=== PATIENT | female | born 1930 | race Caucasian/White ===

== ENCOUNTER 2016-11-17 00:16 | Inpatient (IN) | payer OTHER ==
[~2016-11-17] VITALS: Ht 149.9 cm; Wt 58.2 kg
--- NOTE | 2016-11-17 00:33 | EMERGENCY ROOM VISIT NOTE ---
History Report prepared by Shannan: César Wheat Under the Supervision of: Dr. Marvin Damian M.D. First contact with patient: 00:20 Chief Complaint: ABDOMINAL PAIN Stated Complaint: ABDOMINAL PAIN History of Present Illness The patient is an 86 year old female who presents to the Emergency Room with complaints of improving abdominal pain that started around 1899. The patient states that she thinks that she ate supper too quickly. She states that she was spitting up afterwards, and this made her feel better. The patient additionally states that she is having some back pain, though she denies any chest pain or shortness of breath. She states that she had two bowel movements since the pain started. The patient states that she has a history of 8 previous heart attacks, though this feels different. She states that she has not had a cholecystectomy. Source of History: patient Onset: 1899 Position: abdomen Timing: other (improving) Modifying Factors (Relieving): other (spitting up) Associated Symptoms: + back pain, No chest pain, No SOB Note: Associated symptoms: spitting up Review of Systems See HPI for pertinent positives & negatives. A total of 10 systems reviewed and were otherwise negative. Past Medical & Surgical Medical Problems: (1) Acute calculous cholecystitis (2) Anemia (3) CAD (coronary artery disease) of artery bypass graft (4) Coronary artery disease (5) Diabetes (6) GERD (gastroesophageal reflux disease) (7) Hyperlipidemia (8) Hypertension (9) Mitral valve disorder (10) Osteoarthritis (11) TIA (transient ischemic attack) (12) Vitamin D deficiency Social History Smoking Status: Former Smoker Alcohol Use: none Marital Status: Occupation Status: retired Current/Historical Medications Scheduled Amlodipine (Norvasc), 5 MG PO HS Ascorbic Acid (Vitamin C), 250 MG PO DAILY Aspirin (Aspirin 81), 81 MG PO DAILY Calcium/Vitamin D (Os-Shankar 500 Plus D), 1 TAB PO BID Carvedilol (Coreg), 6.25 MG PO BID Cholecalciferol (Vitamin D), 2,000 UNIT PO DAILY Clopidogrel (Plavix), 75 MG PO QAM Coenzyme Q10 (Ubidecarenone) (Coq-10), 100 MG PO DAILY Cyanocobalamin (Vitamin B12), 1,000 MCG PO DAILY Lisinopril (Prinivil), 40 MG PO QAM Methylsulfonylmethane (Msm), 1,000 MG PO DAILY Nitroglycerin (Nitrostat), 0.4 MG UT UD Ranitidine (Zantac), 150 MG PO HS Rosuvastatin Calcium (Crestor), 5 MG PO HS Scheduled PRN Ipratropium-Albuterol (Combivent Respimat), 1 PUFFS INH QID PRN for COUGH, WHEEZING Allergies Coded Allergies: Atenolol (Verified Allergy, Unknown, UNKNOWN, 11/17/16) Doxycycline (Verified Allergy, Unknown, UNKNOWN, 11/17/16) Fluticasone (Verified Allergy, Unknown, UNKNOWN, 11/17/16) Methylprednisolone (Verified Allergy, Unknown, UNKNOWN, 11/17/16) Metoprolol (Verified Allergy, Unknown, UNKNOWN, 11/17/16) Milk Protein Extract (Verified Allergy, Unknown, UNKNOWN, 11/17/16) NSAIDs (Verified Allergy, Unknown, UNKNOWN, 11/17/16) Nadolol (Verified Allergy, Unknown, UNKNOWN, 11/17/16) Neomycin (Verified Allergy, Unknown, UNKNOWN, 11/17/16) Rosiglitazone (Verified Allergy, Unknown, UNKNOWN, 11/17/16) Salmeterol (Verified Allergy, Unknown, UNKNOWN, 11/17/16) Statins (Verified Allergy, Unknown, UNKNOWN, 11/17/16) Uncoded Allergies: BALSAM OF ADALID (Allergy, Unknown, UNKNOWN, 11/17/16) BETA ADRENERGIC BLOCKERS (Allergy, Unknown, UNKNOWN, 11/17/16) CHOLESTEROL LOWERING DRUGS (Allergy, Unknown, UNKNOWN, 11/17/16) ISMO (Allergy, Unknown, UNKNOWN, 11/17/16) MUSCLE RELAXANTS (Allergy, Unknown, UNKNOWN, 11/17/16) Physical Exam Vital Signs Date Time Temp Pulse Resp B/P (MAP) Pulse Ox O2 Delivery O2 Flow Rate FiO2 11/17/16 04:05 60 24 120/75 94 11/17/16 03:35 60 24 120/75 94 Room Air 11/17/16 01:39 74 20 97/38 93 Room Air 11/17/16 00:26 64 11/17/16 00:24 36.6 62 17 124/49 94 Room Air Physical Exam GENERAL: Patient is elderly appearing in no distress. Smiling and laughing during exam. HEENT: No acute trauma, normocephalic atraumatic, mucous membranes moist, no nasal congestion, no scleral icterus. NECK: No stridor, no adenopathy, no meningismus, trachea is midline. LUNGS: No dyspnea. Clear to auscultation and equal bilaterally. No wheeze, no rhonchi. HEART: Regular rate and rhythm. No murmurs, rubs, gallops appreciated. ABDOMEN: Small non-tender ventral hernia just above the umbilicus. Some vague epigastric tenderness to palpation. Soft, bowel sounds positive, no peritonitis. BACK: No midline tenderness, no CVA tenderness EXTREMITIES: Normal motion all extremities, no cyanosis, no edema. NEUROLOGIC: Alert and oriented, no acute motor or sensory deficits, no focal weakness, cranial nerves grossly intact. SKIN: No rash, no jaundice, no diaphoresis. Medical Decision & Procedures ER Provider Diagnostic Interpretation: X ray results are stated below per my interpretation and the radiologist's interpretation. One View Chest: No infiltrate, no effusion, mild perihilar scarring, and sternal wires intact Radiology results and stated below per my review and radiologist interpretation: CT ABDOMEN & PELVIS: Cholelithiasis with a large rime calcified stone in the gallbladder neck. Marked gallbladder distention with possible mild gallbladder wall thickening. No significant biliary duct dilation. Acute cholecystitis cannot be excluded. Further evaluation could be performed with HIDA scan or ultrasound if clinically indicated. Nondilated fluid-filled small bowel loops in the lower abdomen and pelvis are nonspecific. Enteritis or component of ileus cannot be excluded. No bowel obstruction or inflammation. Tiny hypodensity in the left kidney is too small to definitively characterize. No hydronephrosis or stone. Small hiatal hernia. Diverticulosis without evidence of diverticulitis. Normal appendix. Injection granulomas in the gluteal soft tissues. Extensive vascular atherosclerotic changes without aneurysm or dissection. Apparent common origin of the celiac artery and SMA. Prominent generalized osteopenia and degenerative changes of the spine. Patient is likely status post hysterectomy. Mild cardiomegaly. Coronary artery calcifications. Laboratory Results 11/17/16 00:35 Red Blood Count 4.51, Mean Corpuscular Volume 83.8, Mean Corpuscular Hemoglobin 28.2, Mean Corpuscular Hemoglobin Concent 33.6, Mean Platelet Volume 9.7, Neutrophils (%) (Auto) 82.0, Lymphocytes (%) (Auto) 12.7, Monocytes (%) (Auto) 3.8, Eosinophils (%) (Auto) 1.0, Basophils (%) (Auto) 0.2, Neutrophils # (Auto) 8.74, Lymphocytes # (Auto) 1.35, Monocytes # (Auto) 0.40, Eosinophils # (Auto) 0.11, Basophils # (Auto) 0.02 11/17/16 00:35 Test 11/17/16 00:35 11/17/16 00:42 White Blood Count 10.65 K/uL (4.8-10.8) Red Blood Count 4.51 M/uL (4.2-5.4) Hemoglobin 12.7 g/dL (12.0-16.0) Hematocrit 37.8 % (37-47) Mean Corpuscular Volume 83.8 fL (80-100) Mean Corpuscular Hemoglobin 28.2 pg (25-34) Mean Corpuscular Hemoglobin Concent 33.6 g/dl (32-36) Platelet Count 197 K/uL (130-400) Mean Platelet Volume 9.7 fL (7.4-10.4) Neutrophils (%) (Auto) 82.0 % Lymphocytes (%) (Auto) 12.7 % Monocytes (%) (Auto) 3.8 % Eosinophils (%) (Auto) 1.0 % Basophils (%) (Auto) 0.2 % Neutrophils # (Auto) 8.74 K/uL (1.4-6.5) Lymphocytes # (Auto) 1.35 K/uL (1.2-3.4) Monocytes # (Auto) 0.40 K/uL (0.11-0.59) Eosinophils # (Auto) 0.11 K/uL (0-0.5) Basophils # (Auto) 0.02 K/uL (0-0.2) RDW Standard Deviation 46.0 fL (36.4-46.3) RDW Coefficient of Variation 14.9 % (11.5-14.5) Immature Granulocyte % (Auto) 0.3 % Immature Granulocyte # (Auto) 0.03 K/uL (0.00-0.02) Estimated GFR () 95.0 Estimated GFR (Non- 81.9 BUN/Creatinine Ratio 21.0 (10-20) Calcium Level 9.0 mg/dl (8.5-10.1) Total Bilirubin 0.8 mg/dl (0.2-1) Direct Bilirubin 0.2 mg/dl (0-0.2) Aspartate Amino Transf (AST/SGOT) 17 U/L (15-37) Alanine Aminotransferase (ALT/SGPT) 20 U/L (12-78) Alkaline Phosphatase 68 U/L (45-117) Troponin I < 0.015 ng/ml (0-0.045) Total Protein 7.7 gm/dl (6.4-8.2) Albumin 3.5 gm/dl (3.4-5.0) Lipase 218 U/L (73-393) Bedside Hemoglobin 13.6 g/dl (12.0-16.0) Bedside Hematocrit 40 % (37-47) Bedside Sodium 136 mEq/L (135-144) Bedside Potassium 4.0 mEq/L (3.3-5.0) Bedside Chloride 94 mEq/L (101-112) Bedside Total CO2 30 mEq/l (24-31) Anion Gap 17.0 mmol/L (16-25) Bedside Blood Urea Nitrogen 14 mg/dl (7-18) Bedside Creatinine 0.7 mg/dl (0.6-1.3) Bedside Glucose (other) 190 mg/dl (70-99) Bedside Ionized Calcium (Cyndi) 1.19 mmol/l (1.12-1.32) Laboratory results as reviewed by me. Medications Administered Medications (Trade) Dose Ordered Sig/Catherine Route Start Time Stop Time Status Last Admin Dose Admin Ondansetron HCl (Zofran Inj) 4 mg NOW STAT IV 11/17/16 02:02 11/17/16 02:03 DC 11/17/16 02:32 4 MG Fentanyl Citrate (Fentanyl Inj) 25 mcg NOW ONCE IV 11/17/16 02:15 11/17/16 02:16 DC 11/17/16 02:32 25 MCG Sodium Chloride 1,000 ml @ 75 mls/hr [id number] STAT IV 11/17/16 02:02 11/17/16 15:21 11/17/16 02:31 75 MLS/HR Cefoxitin Sodium 2000 mg/Dextrose 60 ml @ 120 mls/hr NOW STAT IV 11/17/16 02:19 11/17/16 02:48 DC 11/17/16 02:31 120 MLS/HR ECG Indication: abdominal pain Rate (beats per minute): 69 Rhythm: sinus rhythm Findings: 1st degree AV block, PAC, no acute ischemic change ED Course 0020: The patient was evaluated in room A11. A complete history and physical exam was performed. 0200: I reassessed the patient, and I went over the treatment plan, and she agrees. She was having increasing right upper quadrant pain and nausea. 0202: Sodium Chloride 1000 ml @ 75 mls/hr IV, Zofran Inj 4mg IV, Mefoxin 2000mg IV 0203: Discussed the patient's case with Keyana Ramirez. The patient will be evaluated for further treatment and disposition. 0205: I discussed the patient's case with Dr. Alvarez, Surgery, and he states that the surgical team will evaluate the patient tomorrow morning. He agrees with the antibiotics. 0215: Fentanyl Inj 25mcg IV 0219: Cefoxitin Sodium 2000mg/ Dextrose 60 ml @ 120mls/hr IV Medical Decision Differential: Cholecystitis, Gallbladder disfunction, Hepatic Disfunction, Gastritis/PUD, Pancreatitis, ACS, Aortic Pathology, amongst other pathologies entertained. 86 yr old female with significant CAD history and CABG arrives following episode of epigastric pain and vomiting which has improved on arrival. Anxious with mild epigastric TTP. Labs unremarkable but given age and history went ahead with CT. While awaiting results patient developed pain, nausea thus fent/ zofran. CT shows large GB with stones and mild wall thickening. Given exam this is consistent with cholecystitis. Reviewed with gen surg who will evaluate in am and medicine to admit. Given empiric abx. Stable and no peritonitis. Medication Reconcilliation Current Medication List: was personally reviewed by ri Blood Pressure Screening Patient's blood pressure: Normal blood pressure Consults Time Called: 020 Consulting Physician: Keyana Ramirez Returned Call: 020 Discussed the patient's case with Keyana Ramirez. The patient will be evaluated for further treatment and disposition. Additional Consults: Time Called: 020 Consulted Physician: Dr. Alvarez, Surgery Returned Call: 020 Additional Comments: I discussed the patient's case with Dr. Alvarez, Surgery, and he states that the surgical team will evaluate the patient tomorrow morning. He agrees with the antibiotics. Impression Primary Impression: Cholecystitis Scribe Attestation The scribe's documentation has been prepared under my direction and personally reviewed by me in its entirety. I confirm that the note above accurately reflects all work, treatment, procedures, and medical decision making performed by me. Departure Information Dispostion Being Evaluated By Hospitalist Referrals Sasha Smith M.D. (PCP) Patient Instructions My [facility]
[2016-11-17] MEDS ORDERED: OPTIRAY 320 IV PRN (00:45)
[2016-11-17 00:51] LABS: BASO % 0.2 %; BASO ABS # 0.02 K/uL (0-0.2); COMPLETE YES; HEMATOCRIT 37.8 % (37-47); IG% 0.3 %; LYMPH % 12.7 %; LYMPH ABS # 1.35 K/uL (1.2-3.4); MEAN CELL VOLUME 83.8 fL (80-100); MEAN CORPUSCULAR HEMOGLOBIN 28.2 pg (25-34); MEAN CORPUSCULAR HGB CONC 33.6 g/dl (32-36); MEAN PLATELET VOLUME 9.7 fL (7.4-10.4); MONO % 3.8 %; PLATELET COUNT 197 K/uL (130-400); RED BLOOD COUNT 4.51 M/uL (4.2-5.4); WHITE BLOOD COUNT 10.65 K/uL (4.8-10.8)
[2016-11-17 00:54] LABS: ISTAT CREATININE 0.7 mg/dl (0.6-1.3); ISTAT HEMOGLOBIN 13.6 g/dl (12.0-16.0); ISTAT IONIZED CALCIUM 1.19 mmol/l (1.12-1.32)
[2016-11-17 01:13] LABS: ALT/SGPT 20 U/L (12-78); AST/SGOT 17 U/L (15-37); BLOOD UREA NITROGEN 13 mg/dl (7-18); CARBON DIOXIDE 32 mmol/L (21-32); CHLORIDE 98 mmol/L (98-107); CREATININE 0.64 mg/dl (0.60-1.20); GLUCOSE 185 mg/dl (70-99); SODIUM 138 mmol/L (136-145)
[2016-11-17 01:18] LABS: ALKALINE PHOSPHATASE 68 U/L (45-117)
[2016-11-17] MEDS ORDERED: SODIUM CHLORIDE 0.9% 1000ML 1,000 ML IV STA (02:02)
[2016-11-17] MEDS ORDERED: ONDANSETRON INJ 2 MG/ML 2 ML VIAL IV STA (02:02)
[2016-11-17] MEDS ORDERED: CEFOXITIN SOD 2 GM VIAL IV STA (02:02)
[2016-11-17] MEDS ORDERED: FENTANYL CITRATE INJ 50 MCG/1 ML 2 ML VIAL IV ONE (02:15)
[2016-11-17] MEDS ORDERED: CEFOXITIN IV 2,000 MG in DEXTROSE 5% 50ML 50 ML IV STA (02:19)
[2016-11-17] MEDS ORDERED: CHOL200010 PO (02:29)
[2016-11-17] MEDS ORDERED: ASPI-435 PO (02:29)
[2016-11-17] MEDS ORDERED: NTRGSL/4 UT (02:29)
[2016-11-17] MEDS ORDERED: CARV6.252 PO (02:29)
[2016-11-17] MEDS ORDERED: CALC500C70 PO (02:30)
[2016-11-17] MEDS ORDERED: COEN100C11 PO (02:30)
[2016-11-17] MEDS ORDERED: IPRA1AER2 INH (02:30)
[2016-11-17] MEDS ORDERED: METH1CAP PO (02:33)
[2016-11-17] MEDS ORDERED: ZNTT/150 PO (02:33)
[2016-11-17] MEDS ORDERED: ROSU5TAB PO (02:33)
[2016-11-17] MEDS ORDERED: LISI40TA PO (02:33)
[2016-11-17] MEDS ORDERED: CYAN100020 PO (02:33)
[2016-11-17] MEDS ORDERED: CLOP1TAB15 PO (02:33)
[2016-11-17] MEDS ORDERED: AMLO-110 PO (02:33)
[2016-11-17] MEDS ORDERED: ASCO250T4 PO (02:33)
[2016-11-17] MEDS ORDERED: IPRATROPIUM BROMIDE/ALBUTEROL respimat INH INH PRN (03:15)
[2016-11-17] MEDS ORDERED: ACETAMINOPHEN 325 MG TAB PO PRN (03:15)
[2016-11-17] MEDS ORDERED: ONDANSETRON INJ 2 MG/ML 2 ML VIAL IV PRN (03:15)
[2016-11-17] MEDS ORDERED: NITROGLYCERIN 0.4 MG SL PER TAB CHARGE UT SCH (03:15)
[2016-11-17] MEDS ORDERED: GLUCOSE 40% GEL 15 GM TUBE PO PRN (03:45)
[2016-11-17] MEDS ORDERED: GLUCAGON FOR INJ 1 MG VIAL SQ PRN (03:45)
[2016-11-17] MEDS ORDERED: DEXTROSE 50% 50 ML SYR IV PRN (03:45)
[2016-11-17] MEDS ORDERED: GLUCOSE 10 TABS/TUBE PO PRN (03:45)
[2016-11-17 04:29] VITALS: BP 132/53; PULSE 75; TEMP 36.5; O2SAT 94; Ht 149.9 cm; Wt 58.2 kg
[2016-11-17] MEDS ORDERED: PATIENT'S HEIGHT AND/OR WEIGHT NEEDED SCH (05:00)
[2016-11-17] MEDS: SODIUM CHLORIDE 0.9% 1000ML 1,000 ML IV SCH ×2 (05:20→19:24)
--- NOTE | 2016-11-17 05:56 | HISTORY & PHYSICAL EXAMINATION ---
DATE OF ADMISSION: 11/17/2016 PRIMARY CARE PHYSICIAN: Dr. Smith. CHIEF COMPLAINT: Acute epigastric pain since around 6:45 last evening. 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 Apparently, after supper with a sandwich, she complained to have epigastric pain like a band across the upper abdomen. The pain was so severe that she came to the Emergency Room. She did not have any nausea, vomiting, any fever or chills associated with it. In the ER, she was afebrile, but the CAT scan of the abdomen and pelvis did show a huge stone in the neck of the gallbladder with hugely dilated gallbladder wall, suggestive of acute cholecystitis. Surgery was consulted and the patient was put on intravenous antibiotic for possible surgery in the morning. Denies to have any chest pain, palpitation, any shortness of breath, no fever, chills or rigors. No cough or phlegm. No problem with urine and/or bowel habit. No numbness or tingling in the extremities. PAST MEDICAL HISTORY: Significant for CAD with multiple MIs in the past and status post CABG x3, chronic anemia, diabetes, diet controlled, GERD, hyperlipidemia, hypertension and history of mitral valve disorder. PAST SURGICAL HISTORY: CABG x3. FAMILY HISTORY: Nothing contributory. SOCIAL HISTORY: She is . She used to smoke in the past, but quit many, many years ago. She does not use any alcohol and she has been reasonably ambulant, but she does not go up stairs and she does not cross any steps to go up or down. ALLERGIES: SHE IS ALLERGIC TO ATENOLOL, DOXYCYCLINE, FLUTICASONE, METHYLPREDNISONE, METOPROLOL, MILK PROTEIN, NSAIDs, NADOLOL, NEOMYCIN, ROSIGLITAZONE, SOLU-MEDROL, STATINS, BETA-ADRENERGIC BLOCKERS, CHOLESTEROL-LOWERING DRUGS, ISMO AND MUSCLE RELAXANTS. MEDICATIONS: As an outpatient, she has been on aspirin 81 mg daily, Plavix 75 mg daily, ascorbic acid 250 mg daily, cholecalciferol 2000 units daily, Coenzyme Q10 100 mg daily, cyanocobalamin 1000 mcg daily and methylsulfonylmethane 1000 mg daily, amlodipine 5 mg daily, Coreg 6.25 mg b.i.d., albuterol 1 puff q.i.d. p.r.n., lisinopril 40 mg daily, Nitrostat 0.4 mg as directed, ranitidine 150 mg at bedtime and Ambien 5 mg at bedtime. REVIEW OF SYSTEMS: Other system review was unremarkable, except those mentioned in the history of present complaint. PHYSICAL EXAMINATION: GENERAL: On examination in the Emergency Room, she was not having any acute distress. Minimal pain in the epigastrium. VITAL SIGNS: Temperature 36.6, pulse was 74, blood pressure 97/38, but initially, it was 124/49, saturation 93% on room air. HEENT: Unremarkable. NECK: Supple. No JVD, no bruit. CHEST: Clear to auscultation bilaterally. HEART: S1, S2 regular, no murmur. ABDOMEN: Soft. Tender in the epigastrium and also in the right upper quadrant, persistent and positive. Bowel sounds present. EXTREMITIES: Trace edema bilaterally. MUSCULOSKELETAL SYSTEM: Examination did not show any acute arthritis. CENTRAL NERVOUS SYSTEM: She was alert, awake, oriented x3. No focal sensory and/or motor deficit appreciated. LABORATORY DATA: Noted today, white count was 10.65, H&H 12.7/37.8, platelet was 197. Chemistry: Sodium 136, potassium 4.0, chloride was 94, BUN 13, creatinine 0.64. Random glucose 190. LFTs unremarkable. Troponin less than 0.05. Lipase was 218. CT of the abdomen and pelvis without contrast showed cholelithiasis with a large rimmed calcified stone in the gallbladder neck, marked gallbladder distention with possible mild gallbladder wall thickening. No significant biliary dilatation; acute cholecystitis cannot be excluded, a small hiatal hernia, diverticulosis without diverticulitis and extensive vascular atherosclerotic changes without aneurysm or dissection, apparent common origin of the celiac artery and SMA, mild cardiomegaly and coronary artery calcifications. EKG was in sinus rhythm with a first degree AV block, rate of 67 per minute, left axis deviation and no significant ST-T wave changes. IMPRESSION AND PLAN: 1. Acute cholecystitis with a hugely dilated gallbladder. Does not have any fever and/or increasing liver function tests. Surgery was consulted and she was started with intravenous cefotaxime and a small amount of IV fluid will be administered as well. She will have an echocardiogram to find out the cardiac function before she goes for surgery. She does not have any acute cardiac symptoms. 2. 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 She has not seen a mud grinder for a long time. She has been on aspirin, Plavix and cardiac medications. We will hold aspirin, Plavix and continue with Coreg. We will get an echocardiogram to find out the cardiac function before she goes for surgery. 3. Hypertension. Blood pressure seems to be lower side of normal. Continue current medications with hold parameters. 4. Hyperlipidemia. Continue with statin. 5. Gastrointestinal prophylaxis with ranitidine. 6. Deep venous thrombosis prophylaxis, subQ heparin. CODE STATUS. That was discussed with the patient, she will be a full code. In my clinical assessment, the beneficiary meets criteria as per CMS for 2 midnight stay in the hospital. SIMONE
[2016-11-17 06:23] LABS: PROTHROMBIN TIME (PATIENT) 11.2 SECONDS (9.0-12.0)
[2016-11-17] MEDS ORDERED: INSULIN ASPART 100 UNITS/ML 3 ML PEN SC SCH ×3 (07:00→12:00)
[2016-11-17 07:01] VITALS: BP 124/75; PULSE 73; TEMP 36.9; O2SAT 93
--- NOTE | 2016-11-17 07:08 | DIAGNOSTIC IMAGING REPORT ---
SINGLE VIEW CHEST CLINICAL HISTORY: Epigastric abdominal pain. Vomiting. FINDINGS: An AP, portable, upright chest radiograph is obtained. No prior studies are available for comparison at the time of dictation. The examination is degraded by portable technique and patient rotation. The patient is status post midline sternotomy. The heart is enlarged and there is atherosclerotic calcification of the thoracic aorta. The pulmonary vasculature is noncongested. Chronic appearing interstitial thickening is noted. There is no airspace consolidation or pleural effusion. No pneumothorax is seen. The skeletal structures are osteopenic. The bony thorax is grossly intact. IMPRESSION: Cardiomegaly with no acute cardiopulmonary abnormality. Electronically signed by: Jean Marie Hernández M.D. 11/17/2016 7:06 AM Dictated Date/Time: 11/17/2016 7:05 AM
[2016-11-17] MEDS ORDERED: NURSING VERBAL MED ORDER ONE ×2 (07:15→14:15)
--- NOTE | 2016-11-17 07:22 | DIAGNOSTIC IMAGING REPORT ---
CT SCAN OF THE ABDOMEN AND PELVIS WITH IV CONTRAST CLINICAL HISTORY: Epigastric abdominal pain. Vomiting. COMPARISON STUDY: No priors. TECHNIQUE: Following the IV administration of 115 cc of Optiray 320, CT scan of the abdomen and pelvis is performed from the lung bases to the proximal femora. Images are reviewed in the axial, sagittal, and coronal planes. IV contrast was administered without complication. Automated dose control exposure was utilized. A dose lowering technique was utilized adhering to the principles of ALARA. The examination is modestly degraded by motion artifact. CT DOSE: 271.37 mGy.cm FINDINGS: Lung bases: The patient is status post midline sternotomy. The heart is enlarged and without pericardial effusion. The coronary arteries are densely calcified. The lung bases are clear. There is a small hiatal hernia. Liver: The contrast-enhanced liver is normal in size, contour, and attenuation. There is no intrahepatic biliary ductal dilatation. The hepatic veins and portal veins are patent. Gallbladder: The gallbladder is distended. No significant gallbladder wall thickening is identified. There is minimal pericholecystic stranding. A large gallstone is seen in the region of the gallbladder neck on axial image #127 and measures at least 2.2 cm. Spleen: Normal in size and attenuation. Pancreas: Moderately atrophic and grossly unremarkable. Adrenal glands: Unremarkable. Kidneys: The contrast enhanced kidneys are atrophic and without hydronephrosis. The kidneys enhance symmetrically. Abdominal vasculature: The abdominal aorta is normal in course and caliber noting advanced atherosclerotic calcification. Bowel: The small bowel and colon are normal in course and caliber. A duodenal diverticulum is incidentally noted. There is moderate diverticulosis of left colon without CT evidence of acute diverticulitis. The appendix is well-visualized and normal. Peritoneum: There is no intraperitoneal free air or abdominal ascites. Lymphadenopathy: None. Pelvic viscera: The bladder is normal as visualized. The uterus is surgically absent. No adnexal lesion is seen. There are calcified gluteal granulomas. There is a small fat-containing right inguinal hernia. Skeletal structures: The skeletal structures are osteopenic. Moderate to advanced lumbosacral spondylosis is observed. Sclerotic degenerative change is seen in the sacroiliac joints and pubic symphysis. No lytic or blastic lesions are seen. IMPRESSION: 1. The gallbladder is distended and faint pericholecystic stranding is suggested. A large gallstone is seen in the region of the gallbladder neck and the findings are concerning for acute cholecystitis. Correlation with clinical findings will be required. If clinically warranted ultrasound could be considered for further assessment. 2. Cardiomegaly. 3. There is moderate diverticulosis of the left colon without CT evidence of acute diverticulitis. 4. Additional findings as above. Electronically signed by: Jean Marie Hernández M.D. 11/17/2016 7:20 AM Dictated Date/Time: 11/17/2016 7:14 AM
[2016-11-17] MEDS: CEFOXITIN IV 2,000 MG in DEXTROSE 5% 50ML 50 ML IV SCH ×3 (08:07→20:02)
[2016-11-17] MEDS ORDERED: LISINOPRIL 40 MG TAB PO SCH (09:00)
[2016-11-17] MEDS: HEPARIN SOD 5000 UNIT/0.5 ML CARP SQ SCH ×3 (09:00→21:40)
[2016-11-17] MEDS: CARVEDILOL 6.25 MG TAB PO SCH ×3 (09:00→21:32)
[2016-11-17] MEDS: CALCIUM 600MG + VIT D 400 IU TAB PO SCH ×2 (09:00→21:25)
--- NOTE | 2016-11-17 12:16 | Surgery Consultation ---
Consultation Date of Consultation: Nov 17, 2016. Attending Physician: Alvarez Castillo MD Reason for Consultation: Cholelithiasis History of Present Illness Perla Leon is an 86 year old woman with significant cardiac history including 8 prior MIs, s/p open CABG, chronic anemia, DM, GERD, HTN and hyperlipidemia. She presented to the ED on 11/16/16 after she developed epigastric pain following eating a meal. States she thinks she "ate too fast", and caused the pain. She has never had pain like this before. Denies any intolerance or pain with eating fatty or fried foods. Denies recent N/V, and did not have N/V with the pain last night. She has been moving her bowels normally, denies constipation / diarrhea / melena / hematochezia / acholic stools. She has never been diagnosed with gallbladder problems in the past. She has a lower abdominal midline scar on her abdomen, but she is unable to remember which surgery she had there; no other abdominal scars. On my examination this morning , she states she no longer has any abdominal pain; remains NPO, but denies N/V. Denies fever, chills, headaches, dizziness, vision changes, chest pain, SOB, dysuria or urinary symptoms, pain / numbness / swelling / tingling in extremities. Past Medical/Surgical History Medical Problems: History of multiple MIs History of open CABG Chronic anemia Hypertension Diabetes Mellitus (diet controlled) GERD Hyperlipidemia Surgical History: CABG Lower midline incision - ?surgery Social History Smoking Status: Former Smoker Marital Status: Occupation Status: retired Allergies Coded Allergies: Atenolol (Verified Allergy, Unknown, UNKNOWN, 11/17/16) Doxycycline (Verified Allergy, Unknown, UNKNOWN, 11/17/16) Fluticasone (Verified Allergy, Unknown, UNKNOWN, 11/17/16) Methylprednisolone (Verified Allergy, Unknown, UNKNOWN, 11/17/16) Metoprolol (Verified Allergy, Unknown, UNKNOWN, 11/17/16) Milk Protein Extract (Verified Allergy, Unknown, UNKNOWN, 11/17/16) NSAIDs (Verified Allergy, Unknown, UNKNOWN, 11/17/16) Nadolol (Verified Allergy, Unknown, UNKNOWN, 11/17/16) Neomycin (Verified Allergy, Unknown, UNKNOWN, 11/17/16) Rosiglitazone (Verified Allergy, Unknown, UNKNOWN, 11/17/16) Salmeterol (Verified Allergy, Unknown, UNKNOWN, 11/17/16) Statins (Verified Allergy, Unknown, UNKNOWN, 11/17/16) Uncoded Allergies: BALSAM OF ADALID (Allergy, Unknown, UNKNOWN, 11/17/16) BETA ADRENERGIC BLOCKERS (Allergy, Unknown, UNKNOWN, 11/17/16) CHOLESTEROL LOWERING DRUGS (Allergy, Unknown, UNKNOWN, 11/17/16) ISMO (Allergy, Unknown, UNKNOWN, 11/17/16) MUSCLE RELAXANTS (Allergy, Unknown, UNKNOWN, 11/17/16) Home Medications Scheduled Amlodipine (Norvasc), 5 MG PO HS Ascorbic Acid (Vitamin C), 250 MG PO DAILY Aspirin (Aspirin 81), 81 MG PO DAILY Calcium/Vitamin D (Os-Shankar 500 Plus D), 1 TAB PO BID Carvedilol (Coreg), 6.25 MG PO BID Cholecalciferol (Vitamin D), 2,000 UNIT PO DAILY Clopidogrel (Plavix), 75 MG PO QAM Coenzyme Q10 (Ubidecarenone) (Coq-10), 100 MG PO DAILY Cyanocobalamin (Vitamin B12), 1,000 MCG PO DAILY Lisinopril (Prinivil), 40 MG PO QAM Methylsulfonylmethane (Msm), 1,000 MG PO DAILY Nitroglycerin (Nitrostat), 0.4 MG UT UD Ranitidine (Zantac), 150 MG PO HS Rosuvastatin Calcium (Crestor), 5 MG PO HS Scheduled PRN Ipratropium-Albuterol (Combivent Respimat), 1 PUFFS INH QID PRN for COUGH, WHEEZING Current Inpatient Medications Current Inpatient Medications Medications (Trade) Dose Ordered Sig/Catherine Route Start Time Stop Time Status Last Admin Dose Admin Ioversol (Optiray 320) 100 ml UD PRN IV 11/17/16 00:45 11/21/16 00:44 Acetaminophen (Tylenol Tab) 650 mg Q4H PRN PO 11/17/16 03:15 12/17/16 03:14 Ondansetron HCl (Zofran Inj) 4 mg Q6H PRN IV 11/17/16 03:15 12/17/16 03:14 Heparin Sodium (Porcine) (Heparin Sq 5000 Unit/0.5ml) 5,000 unit Q12H SQ 11/17/16 09:00 12/17/16 08:59 Amlodipine Besylate (Norvasc Tab) 5 mg HS PO 11/17/16 21:00 12/17/16 20:59 Calcium/Vitamin D (Caltrate Plus Tab) 1 tab BID PO 11/17/16 09:00 12/17/16 08:59 Carvedilol (Coreg Tab) 6.25 mg BID PO 11/17/16 09:00 12/17/16 08:59 Albuterol/ Ipratropium (Combivent Respimat Inh) 1 puffs QID PRN INH 11/17/16 03:15 12/17/16 03:14 Nitroglycerin (Nitrostat Tab) 0.4 mg UD UT 11/17/16 03:15 12/17/16 03:14 Ranitidine HCl (zANTac TAB) 150 mg HS PO 11/17/16 21:00 12/17/16 20:59 Rosuvastatin Calcium (Crestor Tab) 5 mg HS PO 11/17/16 21:00 12/17/16 20:59 Cefoxitin Sodium 2000 mg/Dextrose 60 ml @ 100 mls/hr Q6H IV 11/17/16 08:30 11/27/16 08:29 11/17/16 08:07 100 MLS/HR Sodium Chloride 1,000 ml @ 75 mls/hr [id number] IV 11/17/16 05:15 12/17/16 05:14 11/17/16 05:20 75 MLS/HR Glucose (Glucose 40% Gel) 15-30 GRAMS 15 GRAMS... UD PRN PO 11/17/16 03:45 12/17/16 03:44 Glucose (Glucose Chew Tab) 4-8 Tablets 4 Tabl... UD PRN PO 11/17/16 03:45 12/17/16 03:44 Dextrose (Dextrose 50% 50ML Syringe) 25-50ML OF 50% DW IV FOR... UD PRN IV 11/17/16 03:45 12/17/16 03:44 Glucagon (Glucagon Inj) 1 mg UD PRN SQ 11/17/16 03:45 12/17/16 03:44 Insulin Aspart (novoLOG ASPART) SLIDING SCALE G... Q6 SC 11/17/16 12:00 12/17/16 06:59 Review of Systems Constitutional: No fever, No chills, No sweats Eyes: No worsening of vision, No eye pain ENT: No hearing loss Respiratory: No cough, No sputum, No shortness of breath Cardiovascular: No chest pain, No edema Abdomen: + pain (on admission, now resolved), No nausea, No vomiting, No diarrhea, No constipation Genitourinary - Female: No dysuria Physical Exam Date Time Temp Pulse Resp B/P (MAP) Pulse Ox O2 Delivery O2 Flow Rate FiO2 11/17/16 07:50 Room Air 11/17/16 07:01 36.9 73 16 124/75 (91) 93 Room Air 11/17/16 04:29 36.5 75 18 132/53 94 Room Air 11/17/16 04:05 60 24 120/75 94 11/17/16 03:35 60 24 120/75 94 Room Air 11/17/16 01:39 74 20 97/38 93 Room Air 11/17/16 00:26 64 11/17/16 00:24 36.6 62 17 124/49 94 Room Air General Appearance: WD/WN, no apparent distress Head: normocephalic, atraumatic Eyes: normal inspection, sclerae normal Neck: supple Respiratory/Chest: lungs clear, normal breath sounds Cardiovascular: regular rate, rhythm Abdomen/GI: normal bowel sounds, non tender, soft Neurologic/Psych: alert, normal mood/affect, oriented x 3 Skin: normal color, warm/dry Laboratory Results Last 24 Hours Test 11/17/16 00:35 11/17/16 00:42 11/17/16 05:45 11/17/16 07:34 White Blood Count 10.65 K/uL Red Blood Count 4.51 M/uL Hemoglobin 12.7 g/dL Hematocrit 37.8 % Mean Corpuscular Volume 83.8 fL Mean Corpuscular Hemoglobin 28.2 pg Mean Corpuscular Hemoglobin Concent 33.6 g/dl Platelet Count 197 K/uL Mean Platelet Volume 9.7 fL Neutrophils (%) (Auto) 82.0 % Lymphocytes (%) (Auto) 12.7 % Monocytes (%) (Auto) 3.8 % Eosinophils (%) (Auto) 1.0 % Basophils (%) (Auto) 0.2 % Neutrophils # (Auto) 8.74 K/uL Lymphocytes # (Auto) 1.35 K/uL Monocytes # (Auto) 0.40 K/uL Eosinophils # (Auto) 0.11 K/uL Basophils # (Auto) 0.02 K/uL RDW Standard Deviation 46.0 fL RDW Coefficient of Variation 14.9 % Immature Granulocyte % (Auto) 0.3 % Immature Granulocyte # (Auto) 0.03 K/uL Sodium Level 138 mmol/L Potassium Level 4.0 mmol/L Chloride Level 98 mmol/L Carbon Dioxide Level 32 mmol/L Anion Gap 8.0 mmol/L 17.0 mmol/L Blood Urea Nitrogen 13 mg/dl Creatinine 0.64 mg/dl Estimated GFR () 95.0 Estimated GFR (Non- 81.9 BUN/Creatinine Ratio 21.0 Random Glucose 185 mg/dl Calcium Level 9.0 mg/dl Total Bilirubin 0.8 mg/dl Direct Bilirubin 0.2 mg/dl Aspartate Amino Transf (AST/SGOT) 17 U/L Alanine Aminotransferase (ALT/SGPT) 20 U/L Alkaline Phosphatase 68 U/L Troponin I < 0.015 ng/ml Total Protein 7.7 gm/dl Albumin 3.5 gm/dl Lipase 218 U/L Bedside Hemoglobin 13.6 g/dl Bedside Hematocrit 40 % Bedside Sodium 136 mEq/L Bedside Potassium 4.0 mEq/L Bedside Chloride 94 mEq/L Bedside Total CO2 30 mEq/l Bedside Blood Urea Nitrogen 14 mg/dl Bedside Creatinine 0.7 mg/dl Bedside Glucose (other) 190 mg/dl Bedside Ionized Calcium (Cyndi) 1.19 mmol/l Prothrombin Time 11.2 SECONDS Prothromb Time International Ratio 1.0 Bedside Glucose 147 mg/dl 11/16/16 CT Abd / Pelvis 1. The gallbladder is distended and faint pericholecystic stranding is suggested. A large gallstone is seen in the region of the gallbladder neck and the findings are concerning for acute cholecystitis. Correlation with clinical findings will be required. If clinically warranted ultrasound could be considered for further assessment. 2. Cardiomegaly. 3. There is moderate diverticulosis of the left colon without CT evidence of acute diverticulitis. Assessment & Plan Perla Leon is an 86 year old woman with significant cardiac history including 8 prior MIs, s/p open CABG, chronic anemia, DM, GERD, HTN and hyperlipidemia who presented to the ED for evaluation of epigastric pain following eating a meal. She was found to have a large gallstone on CT scan imaging. She remains afebrile, vitals stable on room air. No longer has the abdominal pain which brought her in. Denies N/V. She does not have a leukocytosis. Tbili or LFTs are not elevated, Lipase is 218. -No acute surgical intervention indicated at this time. -Cholelithiasis may have been the cause of her acute pain episode last night, but she reports never having had episodes like this before. -Would need cardiac evaluation and clearance prior to any operations, recommend cardiology evaluation -Recommending trial of clear liquid diet - if symptoms return, recommend RUQ U/ S to better evaluate gallbladder -Recheck LFTs in AM -Will discuss with patient and her daughter (when she arrives). Cholecystectomy is certainly not urgent (no infection or obstructive symptoms), and would need full cardiac evaluation / clearance prior to any operation. -Will continue to follow. Addendum 3:30pm: Long discussion held with the patient and her daughter this afternoon. Patient' s daughter reports that the patient has complained of pain intermittently over the past few years, usually in the epigastric area after eating things like gravy or greasy foods. She has never had this pain evaluated in the past, and has never been hospitalized for it. Patient tried a few sips of broth this afternoon and some jello, and had epigastric pain with these foods as well. Discussed with the patient and her daughter that no surgical intervention needs to occur emergently, as she does not have signs of infection or obstruction. However, she does seem to have symptomatic cholelithiasis. Discussed that before proceeding with any decision making at all, patient needs a cardiology evaluation for risk assessment, as she will likely have an extremely high operative risk from cardiac standpoint. Another option would be a cholecystostomy tube, which would be associated with less risk and hopefully symptom alleviation. -At this point, all are in agreement that we will follow up on the cardiology assessment -OK for clear liquids as tolerated today, NPO at midnight for potential procedure tomorrow -Please continue all [employer] cardiac medications as directed by cardiology -Please obtain a RUQ U/S (better imaging modality for gallbladder evaluation than CT scan) -Will reassess and rediscuss with patient and family after cardiology evaluation is complete. Diane Little MD 11/17/16
--- NOTE | 2016-11-17 13:30 | ECHOCARDIOGRAM REPORT ---
*NOTICE TO RECEIVING DEMOCRAT AGENCY This information is strictly Confidential and protected under [place] law. [place] law prohibits you from making any further disclosure of this information unless further disclosure is expressly permitted by the written consent of the person to whom it pertains or is authorized by law. A general authorization for the release of medical or other information is not sufficient for this purpose. Hospital accepts no responsibility if the information is made available to any other person, INCLUDING THE PATIENT. Interpretation Summary * Name: APPLE DIEHL Study Date: 11/17/2016 07:09 AM BP: 124/75 mmHg * Patient Location: [facility]\S\[id number]\1 HR: 72 * : 1930 (M/d/yyyy) Gender: Female Height: 60 in * Age: 86 yrs Ethnicity: [place] Weight: 128 lb * Ordering Physician: Samantha Singh * Referring Physician: Self, Referred * Performed By: Yessi Nieves RCS * * Reason For Study: MULTIPLE ID / CABG X 3 / PRE-OP * BSA: 1.5 m2 * The study was technically adequate. * -- Conclusions -- * Sinus rhythm with premature atrial contractions was present during the echocardiogram examination. * There is a large sized apical, septal, anteroseptal, and inferior wall motion abnormality with hypokinesis to akinesis of the segments. * The inferoseptal and inferior feldman are thin and akinetic consistent with long standing scar. * Left ventricular systolic function is moderately reduced. * The LV Ejection Fraction = 30-35%. * The aortic valve is mildly calcified. * Aortic stenosis is absent. * Mild aortic regurgitation. * There is mild mitral regurgitation. * Doppler findings do not suggest pulmonary hypertension. * Diastolic dysfunction, Grade II (pseudonormalization pattern). Procedure Details * A complete two-dimensional transthoracic echocardiogram was performed (2D, M-mode, Doppler and color flow Doppler). Left Ventricle * The left ventricle is normal in size. * There is normal left ventricular wall thickness. * Left ventricular systolic function is moderately reduced. * Ejection Fraction = 30-35%. * There is a large sized apical, septal, anteroseptal, and inferior wall motion abnormality with hypokinesis to akinesis of the segments. The inferoseptal and inferior feldman are thin and akinetic consistent with long standing scar. Right Ventricle * The right ventricle is normal in size and function. Atria * The left atrium is mildly dilated. * Right atrial size is normal. * There is no evidence of atrial septal defect, but resolution does not allow assessment for a patent foramen ovale. Mitral Valve * The mitral valve is normal. * There is no mitral valve stenosis. * There is mild mitral regurgitation. Tricuspid Valve * The tricuspid valve is normal. * There is no tricuspid stenosis. * Significant tricuspid regurgitation is absent. * Doppler findings do not suggest pulmonary hypertension. Aortic Valve * The aortic valve is trileaflet. * The aortic valve is mildly calcified. * Aortic stenosis is absent. * Mild aortic regurgitation. Pulmonic Valve * The pulmonary valve is not well seen, but the Doppler examination is normal without significant regurgitation or stenosis. Great Vessels * The aortic root and proximal ascending aorta are normal sized. Pericardium/Pleural * There is no pericardial effusion. Great Vessels * Normal inferior vena cava diameter and respiratory variation suggests normal central venous pressure. * Normal inferior vena cava size and collapsability with sniff indicates a normal right atrial pressure of 3 mmHg Left Ventricular Diastolic Function * Diastolic dysfunction, Grade II (pseudonormalization pattern). MMode 2D Measurements and Calculations IVSd 1.3 cm IVSs 1.6 cm LVIDd 4.8 cm LVIDs 3.4 cm LVPWd 0.99 cm LVPWs 1.4 cm IVS/LVPW 1.3 FS 28.7 % EDV(Teich) 105.2 ml ESV(Teich) 47.1 ml EF(Teich) 55.2 % EDV(cubed) 107.5 ml ESV(cubed) 39.0 ml EF(cubed) 63.8 % % IVS thick 23.9 % % LVPW thick 38.7 % LV mass(C)d 199.6 grams LV mass(C)dI 129.2 grams/m\S\2 LV mass(C)s 181.1 grams LV mass(C)sI 117.3 grams/m\S\2 SV(Teich) 58.1 ml SI(Teich) 37.6 ml/m\S\2 SV(cubed) 68.6 ml SI(cubed) 44.4 ml/m\S\2 Ao root diam 2.7 cm Ao root area 5.9 cm\S\2 ACS 1.4 cm LA dimension 4.5 cm LA/Ao 1.7 LVOT diam 1.8 cm LVOT area 2.6 cm\S\2 Doppler Measurements and Calculations MV E max neva 152.6 cm/sec MV A max neva 134.8 cm/sec MV E/A 1.1 MV P1/2t max neva 158.9 cm/sec MV P1/2t 66.9 msec MVA(P1/2t) 3.3 cm\S\2 MV dec slope 695.3 cm/sec\S\2 MV dec time 0.14 sec Ao V2 max 195.2 cm/sec Ao max PG 15.2 mmHg Ao max PG (full) 9.8 mmHg JUAN PABLO(V,A) 1.5 cm\S\2 JUAN PABLO(V,D) 1.5 cm\S\2 AI max neva 376.7 cm/sec AI max PG 56.7 mmHg AI dec slope 195.9 cm/sec\S\2 AI P1/2t 563.1 msec LV V1 max PG 5.5 mmHg LV V1 max 117.0 cm/sec MR max neva 467.6 cm/sec MR max PG 87.5 mmHg TR max neva 280.8 cm/sec
[2016-11-17 15:40] VITALS: BP 118/56; PULSE 77; TEMP 36.9; O2SAT 92
[2016-11-17] MEDS ORDERED: ASPIRIN 81 MG ECTAB PO ONE (16:00)
--- NOTE | 2016-11-17 16:17 | Cardiology Consultation ---
Cardiology Consultation Date of Consultation: Nov 17, 2016 History of Present Illness Patient is a 86 year old female seen in cardiology consultation per the request of Dr. Alvarez Castillo for preoperative cardiac evaluation. The patient typically has followed with cardiology in [place] in the past as well as [place], and does not routinely follow with cardiology in [place] or within [place] [facility] [place] in general. The patient lives in a senior assisted-living facility. She presented to the emergency department early this morning just after midnight with abdominal discomfort that has started approximate 7 PM the preceding day. She notes abdominal discomfort is new and this is not something that is bothering her in the past. An EKG revealed an age undetermined anterior, anteroseptal infarction pattern with frequent premature atrial contractions. CT of the abdomen and pelvis revealed cholelithiasis with a calcified stone in the gallbladder neck and markedly distended gallbladder. The patient's laboratory studies were negative for chemical evidence of acute cholecystitis with normal bilirubin and normal AST, normal ALT, and normal lipase level. A troponin was performed on presentation on 11/17/16 that was negative. The patient has been seen by general surgery, and cholecystectomy is being entertained and I will assess the patient in preoperative cardiac evaluation. She has a complex past cardiac history as delineated below. Past Medical/Surgical History Problem List: Medical Problems: (1) Acute calculous cholecystitis (2) Anemia (3) CAD (coronary artery disease) of artery bypass graft (4) Coronary artery disease (5) Diabetes (6) GERD (gastroesophageal reflux disease) (7) Hyperlipidemia (8) Hypertension (9) Mitral valve disorder (10) Osteoarthritis (11) TIA (transient ischemic attack) (12) Vitamin D deficiency History Past Medical History: 1. Chronic ischemic heart disease and ischemic cardiomyopathy, mitral regurgitation, patient recalls that her first myocardial infarction took place when she was 46 years old. She underwent CABG 3 at [facility] in [place] in 1995 2. She reportedly had a cardiac catheterization with 2 stents placed, anatomical details unknown in 2005 3. Within the last year, in 2015, the patient presented to [facility] with unstable angina, apparently acute onset severe shortness of breath and was hospitalized for description of her and her daughter she underwent cardiac catheterization the day after presentation. She was told that she had blockage in her bypass grafts and per their report she underwent a coronary stent to a chippewa-cree coronary artery. She has been on uninterrupted aspirin and clopidogrel since. 4. Apparent transient ischemic attack after cardiac catheterization with change in her mental status and overall personality that persisted for several weeks post procedure 5. Diet-controlled type 2 diabetes mellitus 6. Dyslipidemia 7. Hypertension Past Surgical History: 1. Coronary artery bypass grafting , 1995 in [place] 2. Cardiac catheterization 2005 in [place] with 2 stents, details unknown 3. 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 She lives in an elderly assisted living, and has close family support, her daughters at the bedside Family History: She notes that her sister had coronary artery bypass grafting. Her mother due to complications of a blood clot traveling to her brain, details unknown Review Of Systems See above for pertinent positives & negatives. A total of 10 systems reviewed and were otherwise negative. Allergies Coded Allergies: Atenolol (Verified Allergy, Unknown, UNKNOWN, 11/17/16) Doxycycline (Verified Allergy, Unknown, UNKNOWN, 11/17/16) Fluticasone (Verified Allergy, Unknown, UNKNOWN, 11/17/16) Methylprednisolone (Verified Allergy, Unknown, UNKNOWN, 11/17/16) Metoprolol (Verified Allergy, Unknown, UNKNOWN, 11/17/16) Milk Protein Extract (Verified Allergy, Unknown, UNKNOWN, 11/17/16) NSAIDs (Verified Allergy, Unknown, UNKNOWN, 11/17/16) Nadolol (Verified Allergy, Unknown, UNKNOWN, 11/17/16) Neomycin (Verified Allergy, Unknown, UNKNOWN, 11/17/16) Rosiglitazone (Verified Allergy, Unknown, UNKNOWN, 11/17/16) Salmeterol (Verified Allergy, Unknown, UNKNOWN, 11/17/16) Statins (Verified Allergy, Unknown, UNKNOWN, 11/17/16) Uncoded Allergies: BALSAM OF ADALID (Allergy, Unknown, UNKNOWN, 11/17/16) BETA ADRENERGIC BLOCKERS (Allergy, Unknown, UNKNOWN, 11/17/16) CHOLESTEROL LOWERING DRUGS (Allergy, Unknown, UNKNOWN, 11/17/16) ISMO (Allergy, Unknown, UNKNOWN, 11/17/16) MUSCLE RELAXANTS (Allergy, Unknown, UNKNOWN, 11/17/16) Medications Reported Home Medications Medications Dose Route/Sig Max Daily Dose Days Date Category Vitamin B12 (Cyanocobalamin) 1,000 Mcg Tab 1,000 Mcg PO DAILY 11/17/16 Reported Vitamin C (Ascorbic Acid) 250 Mg Tab 250 Mg PO DAILY 11/17/16 Reported Msm (Methylsulfonylmethane) 1,000 Mg Cap 1,000 Mg PO DAILY 11/17/16 Reported Prinivil (Lisinopril) 40 Mg Tab 40 Mg PO QAM 11/17/16 Reported Zantac (Ranitidine HCl) 150 Mg Tab 150 Mg PO HS 11/17/16 Reported Plavix (Clopidogrel Bisulfate) 75 Mg Tab 75 Mg PO QAM 11/17/16 Reported Norvasc (Amlodipine Besylate) 5 Mg Tab 5 Mg PO HS 11/17/16 Reported Crestor (Rosuvastatin Calcium) 5 Mg Tab 5 Mg PO HS 11/17/16 Reported Os-Shankar 500 Plus D (Calcium/Vitamin D) Tab 1 Tab PO BID 11/17/16 Reported Coq-10 (Coenzyme Q10 (Ubidecarenone)) 100 Mg Cap 100 Mg PO DAILY 11/17/16 Reported Combivent Respimat (Ipratropium-Albuterol) 1 Aer Aer 1 Puffs INH QID PRN 11/17/16 Reported Nitrostat (Nitroglycerin) 0.4 Mg Tab 0.4 Mg UT UD 11/17/16 Reported Aspirin 81 (Aspirin) 81 Mg Tab 81 Mg PO DAILY 11/17/16 Reported Vitamin D (Cholecalciferol) 2,000 Unit Cap 2,000 Unit PO DAILY 11/17/16 Reported Coreg (Carvedilol) 6.25 Mg Tab 6.25 Mg PO BID 11/17/16 Reported Physical Exam Vital Signs (Last 8hrs): Last Vital Signs Documentation Date Time Temp Pulse Resp B/P (MAP) Pulse Ox O2 Delivery O2 Flow Rate FiO2 11/17/16 07:50 Room Air 11/17/16 07:01 36.9 73 16 124/75 (91) 93 General Appearance: Alert and Oriented x3. NAD. Head: Normocephalic Atraumatic. Eyes: PERRLA, EOMI, conjunctiva and sclera clear Neck: Supple. No carotid bruits noted. No JVD. No HJD. Respiratory: Breath sounds clear to auscultation bilaterally. No w/r/r. Cardiovascular: Reg rate and rhythm. S1 and S2 noted. No murmurs, rubs, gallops. PMI non displace. Abdomen: Normal bowel sounds, soft nontender. no abdominal bruits. Extremities: No edema, no clubbing or cyanosis. distal pulses 2/4 bilaterally. Neuro: No focal deficits. Psychiatric: Normal affect. Data Last Resulted 11/17/16 00:35 Red Blood Count 4.51, Mean Corpuscular Volume 83.8, Mean Corpuscular Hemoglobin 28.2, Mean Corpuscular Hemoglobin Concent 33.6, Mean Platelet Volume 9.7, Neutrophils (%) (Auto) 82.0, Lymphocytes (%) (Auto) 12.7, Monocytes (%) (Auto) 3.8, Eosinophils (%) (Auto) 1.0, Basophils (%) (Auto) 0.2, Neutrophils # (Auto) 8.74, Lymphocytes # (Auto) 1.35, Monocytes # (Auto) 0.40, Eosinophils # (Auto) 0.11, Basophils # (Auto) 0.02 Last Resulted 11/17/16 00:35 Past 24 Hours Test 11/17/16 00:35 11/17/16 05:45 Range/Units Troponin I < 0.015 0-0.045 ng/ml Prothromb Time International Ratio 1.0 0.9-1.1 Prothrombin Time 11.2 9.0-12.0 SECONDS EKG performed on presentation 11/17/2016 at 12:23 AM: Sinus rhythm with first-degree AV block, and frequent supraventricular premature contractions. Age-indeterminate anteroseptal infarction pattern, with poor R-wave progression in leads V1 to V6. No previous tracings available for comparison Transthoracic echocardiogram performed today 11/17/69 reviewed in apparently by the undersigned: * -- Conclusions -- * Sinus rhythm with premature atrial contractions was present during the echocardiogram examination. * There is a large sized apical, septal, anteroseptal, and inferior wall motion abnormality with hypokinesis to akinesis of the segments. * The inferoseptal and inferior feldman are thin and akinetic consistent with long standing scar. * Left ventricular systolic function is moderately reduced. * The LV Ejection Fraction = 30-35%. * The aortic valve is mildly calcified. * Aortic stenosis is absent. * Mild aortic regurgitation. * There is mild mitral regurgitation. * Doppler findings do not suggest pulmonary hypertension. * Diastolic dysfunction, Grade II (pseudonormalization pattern). Assessment & Plan Impression: 86-year-old female 1. Abdominal discomfort, presentation and CT results concerning for acute cholecystitis 2. Underlying chronic coronary heart disease, ischemic cardiomyopathy, moderate LV systolic dysfunction, with large anteroseptal, inferoseptal, scar, apical hypokinesis, moderate LV systolic dysfunction, qualitative ejection fraction 30-35% 3. Sinus rhythm first-degree AV block, frequent supraventricular ectopy Discussion/recommendations: The patient was seen and examined in the company of her daughter at the bedside. In advancing the patient I had spoken to her primary care provider's office and obtain records of a prior echocardiogram performed in 2014 at which time her ejection fraction was described as being 40-45%, however we know that she had another coronary event in the interim time had a cardiac catheterization in 2015. She had a Holter monitor in June 2016 which revealed supraventricular ventricular ectopy some what was noted on her recent EKG. On her echocardiograms the patient has akinesis of the septum with findings consistent with scar, noted significant myocardial thinning in this territory associate wall motion abnormality with moderate LV systolic dysfunction. She describes no symptoms suggestive of unstable angina. She does note that she has chest symptoms including exertional shortness of breath if she walks too fast at home but this is been her baseline recently. It sounds as though when she had her cardiac catheterization in 2015, she had a difficult time recovering post procedure and did have a suspected post procedure neurologic event/TIA. She's been treated with chronic dual antiplatelet therapy. She is overall well compensated with no unstable angina, compensated heart failure, uncompensated from a rhythm standpoint. However she is certainly at high risk for general anesthesia and perioperative surgical complication from a cardiac perspective. There is no cardiac testing can be performed at this time to reduce her risk. I called Dr. Little with general surgery had a discussion with her. The patient certainly seems to have ongoing abdominal discomfort with only minimum oral intake and does sound as though she will require intervention for her gallbladder. She is going to review her case and we'll determine if the patient is best suited for attempted laparoscopic cholecystectomy, perhaps percutaneous cholecystostomy drainage. Continue his cholecystostomy drainage however would require transfer to tertiary care physician intervention radiology is not available at this facility. For the time being, I have requested the patient's home cardiac medications including her aspirin, carvedilol, and rosuvastatin are reinitiated as they were held earlier today. We're going to remain off of clopidogrel for now pending anticipated surgery. Would like for her to have her aspirin. This increases her risk of bleeding, given her history of multivessel stenting in the past, aspirin is advised to hopefully prevent stent thrombosis perioperatively. Once again, she certainly at high risk for perioperative myocardial infarction, heart failure, arrhythmia, and given her generalized frailty and past neurologic event, noncardiac complication as well. It does sound as though she will need definitive treatment of her gallbladder. I do not think her surgical risk is prohibitive for us to consider laparoscopic cholecystectomy, but the patient and family will need to accept that this is a high risk endeavor. I described this in detail to the patient and daughter at the bedside. Zach Moscoso DO, FACC, FACOI Associate [employer] [facility]
--- NOTE | 2016-11-17 18:46 | DIAGNOSTIC IMAGING REPORT ---
ABDOMINAL ULTRASOUND, RIGHT UPPER QUADRANT HISTORY: RUQ pain, cholelithiasis on CT scan. COMPARISON: Abdomen and pelvis CT 11/17/2016. FINDINGS: Pancreas: The pancreatic tail is obscured by overlying bowel gas. The remaining portions of the pancreas are within normal limits. Liver: Unremarkable. Gallbladder: The gallbladder is mildly distended. Mild gallbladder wall thickening measuring 5 mm. A 2.7 cm gallstone within the gallbladder neck. This may be impacted. Trace pericholecystic fluid. Positive sonographic Maynard's sign. CBD: 4 mm. Right kidney: No hydronephrosis. IMPRESSION: A 2.7 cm stone within the gallbladder neck with mild gallbladder wall thickening, trace pericholecystic fluid, and a positive sonographic Maynard's sign. This is highly suspicious for acute cholecystitis. Electronically signed by: Harsha Perry M.D. 11/17/2016 6:44 PM Dictated Date/Time: 11/17/2016 6:42 PM
[2016-11-17] MEDS: INSULIN ASPART 100 UNITS/ML 3 ML PEN SC SCH ×2 (19:23→21:00)
--- NOTE | 2016-11-17 19:49 | Progress Note ---
Progress Note Date of Service Nov 17, 2016. Progress Note seen with daughter at bedside states she has mild RUQ pain worse with eating denies nausea, fever/chills denies chest pain, dyspnea, palpitations, dizziness no other symptoms VS noted and reviewed oriented x 2 , not in distress, speaks in sentences with no effort nor accessory muscle use normal rate, regular rhythm, no murmurs clear breath sounds bilaterally non distended, soft, mild RUQ tenderness no bipedal edema, erythema, warmth no neuro deficits labs noted BILIARY COLIC CHOLELITHIASIS - possible component of Cholecystitis - LFTs within normal limits afebrile -- continue Cefoxitin IV discussed with Dr. Chairez, no urgent Surgery today, recommend Cardiology Preop Eval Dr. Moscoso consulted HISTORY OF CAD/CABG/Stents - echo ordered - Lisinopril held for now IV fluids discontinued other diagnoses and plan of care per Dr. Singh's notes Alvarez Castillo MD
[2016-11-17] MEDS ORDERED: RANITIDINE HCL 150 MG TAB PO SCH (21:00)
[2016-11-17] MEDS ORDERED: AMLODIPINE BESYLATE 5 MG TAB PO SCH (21:00)
[2016-11-17] MEDS ORDERED: ROSUVASTATIN CALCIUM 10 MG TAB PO SCH (21:00)
[2016-11-17 22:59] VITALS: BP 99/45; PULSE 67; TEMP 36.9; O2SAT 92
[2016-11-18] VITALS (7 sets, daily range): BP systolic 88–119; BP diastolic 48–62; PULSE 66–83; TEMP 37–37.8; O2SAT 88–99
[2016-11-18] MEDS ORDERED: NURSING VERBAL MED ORDER ONE (02:00)
[2016-11-18] MEDS: CEFOXITIN IV 2,000 MG in DEXTROSE 5% 50ML 50 ML IV SCH (02:27)
[2016-11-18] MEDS: INSULIN ASPART 100 UNITS/ML 3 ML PEN SC SCH ×3 (05:59→17:46)
[2016-11-18 06:13] LABS: MANUAL MICROSCOPIC REQUIRED? NO; REVIEW REQ? YES; URINE APPEARANCE CLEAR (CLEAR); URINE BILIRUBIN NEG (NEG); URINE COLOR DK YELLOW; URINE EPITHELIAL CELL AUTO >30 /lpf (0-5); URINE NITRITE POS (NEG); URINE SPECIFIC GRAVITY 1.032 (1.000-1.030); UROBILINOGEN NEG (NEG); ZZUR CULT IF INDIC CLEAN CATCH YES
[2016-11-18 06:27] LABS: HEMATOCRIT 37.3 % (37-47); MEAN CELL VOLUME 84.6 fL (80-100); MEAN CORPUSCULAR HEMOGLOBIN 28.1 pg (25-34); MEAN CORPUSCULAR HGB CONC 33.2 g/dl (32-36); MEAN PLATELET VOLUME 9.7 fL (7.4-10.4); PLATELET COUNT 161 K/uL (130-400); RED BLOOD COUNT 4.41 M/uL (4.2-5.4); WHITE BLOOD COUNT 22.31 K/uL (4.8-10.8)
[2016-11-18 06:54] LABS: BUN/CREATININE RATIO 17.6 (10-20); CALCIUM 8.5 mg/dl (8.5-10.1); CREATININE 0.8 mg/dl (0.60-1.20); MAGNESIUM 1.6 mg/dl (1.8-2.4); POTASSIUM 3.6 mmol/L (3.5-5.1)
[2016-11-18 06:55] LABS: ESTIMATED AVERAGE GLUCOSE 128 mg/dl; HA1C FLAG Normal (Normal)
--- NOTE | 2016-11-18 08:19 | Surgery Progress Note ---
Surgery Progress Note Date of Service Nov 18, 2016. Subjective Patient examined at bedside this morning. Afebrile, vitals stable on room air, no acute events overnight. Feels well, currently denies pain. Observed ambulating to the bathroom this morning without assistance. States she only had a few bites of Jello and some green tea yesterday evening, denies abdominal pain or vomiting. RUQ U/S was completed last night, with a documented + sonographic Maynard's sign and continued pain following the test. Objective Vital Signs: Date Time Temp Pulse Resp B/P (MAP) Pulse Ox O2 Delivery O2 Flow Rate FiO2 11/17/16 23:15 Room Air 11/17/16 22:59 36.9 67 18 99/45 (63) 92 Room Air 11/17/16 16:00 Room Air 11/17/16 15:40 36.9 77 16 118/56 (76) 92 Room Air General Appearance: WD/WN, no apparent distress, + thin Head: normocephalic, atraumatic Neck: supple, no adenopathy Respiratory/Chest: lungs clear, normal breath sounds Cardiovascular: regular rate, rhythm Abdomen: non distended, soft, + tenderness (Tender to palpation in RUQ and epigastric area) Laboratory Results: Results Past 24 Hours Test 11/17/16 12:09 11/17/16 17:21 11/17/16 20:39 11/18/16 05:57 Range/Units Bedside Glucose 102 88 113 75 70-90 mg/dl Test 11/18/16 06:00 11/18/16 06:11 Range/Units Urine Color DK YELLOW Urine Appearance CLEAR CLEAR Urine pH 5.0 4.5-7.5 Urine Specific [place] 1.032 1.000-1.030 Urine Protein 1+ NEG Urine Glucose (UA) NEG NEG Urine Ketones TRACE NEG Urine Occult Blood TRACE NEG Urine Nitrite POS NEG Urine Bilirubin NEG NEG Urine Urobilinogen NEG NEG Urine Leukocyte Esterase SMALL NEG Urine WBC (Auto) 10-30 0-5 /hpf Urine RBC (Auto) 0-4 0-4 /hpf Urine Hyaline Casts (Auto) 5-10 0-5 /lpf Urine Epithelial Cells (Auto) >30 0-5 /lpf Urine Bacteria (Auto) NEG NEG Urine Renal Epithelial Cells 0-5 /lpf White Blood Count 22.31 4.8-10.8 K/uL Red Blood Count 4.41 4.2-5.4 M/uL Hemoglobin 12.4 12.0-16.0 g/dL Hematocrit 37.3 37-47 % Mean Corpuscular Volume 84.6 80-100 fL Mean Corpuscular Hemoglobin 28.1 25-34 pg Mean Corpuscular Hemoglobin Concent 33.2 32-36 g/dl RDW Standard Deviation 48.6 36.4-46.3 fL RDW Coefficient of Variation 15.7 11.5-14.5 % Platelet Count 161 130-400 K/uL Mean Platelet Volume 9.7 7.4-10.4 fL Sodium Level 134 136-145 mmol/L Potassium Level 3.6 3.5-5.1 mmol/L Chloride Level 100 98-107 mmol/L Carbon Dioxide Level 30 21-32 mmol/L Anion Gap 4.0 3-11 mmol/L Blood Urea Nitrogen 14 7-18 mg/dl Creatinine 0.80 0.60-1.20 mg/dl Est Creatinine Clear Calc Drug Dose 40.7 ml/min Estimated GFR () 78.5 Estimated GFR (Non- 67.7 BUN/Creatinine Ratio 17.6 10-20 Random Glucose 82 70-99 mg/dl Estimated Average Glucose 128 mg/dl Hemoglobin A1c 6.1 4.5-5.6 % Calcium Level 8.5 8.5-10.1 mg/dl Magnesium Level 1.6 1.8-2.4 mg/dl Total Bilirubin 1.5 0.2-1 mg/dl Direct Bilirubin 0.3 0-0.2 mg/dl Aspartate Amino Transf (AST/SGOT) 19 15-37 U/L Alanine Aminotransferase (ALT/SGPT) 15 12-78 U/L Alkaline Phosphatase 51 45-117 U/L Total Protein 6.3 6.4-8.2 gm/dl Albumin 2.5 3.4-5.0 gm/dl Microbiology Results 11/18/16 Urine Culture, Received Pending 11/17/16 RUQ U/S: IMPRESSION: A 2.7 cm stone within the gallbladder neck with mild gallbladder wall thickening, trace pericholecystic fluid, and a positive sonographic Maynard's sign. This is highly suspicious for acute cholecystitis. Assessment & Plan Perla Leon is an 86 year old woman with significant cardiac history including 8 prior MIs, s/p open CABG, chronic anemia, DM, GERD, HTN and hyperlipidemia who presented to the ED for evaluation of epigastric pain following eating a meal. She was found to have a large gallstone on CT scan imaging. She remains afebrile, vitals stable on room air. This morning now has a leukocytosis, total bili is elevated from yesterday (now 1.5 from 0.8). U/S completed yesterday evening shows likely acute cholecystitis with a positive sonographic Maynard's sign. -Patient needs intervention for acute cholecystitis - laparoscopic cholecystectomy vs percutaneous cholecystostomy tube -Cardiac evaluation yesterday assessed patient with extremely high cardiac risk for surgery -Discussed with Anesthesiology as well, all are in agreement she would be better served having her surgery in [facility] due to intraop / periop resources for possible acute coronary events. -She has been NPO since midnight, continue IVF hydration -Recommend starting antibiotics given leukocytosis today -Will discuss transfer with primary team Diane Little MD 11/18/16
[2016-11-18] MEDS ORDERED: MAGNESIUM SULFATE 1GM / D5W 1 GM in PREMIXED IN D5W 100 ML IV STA (08:37)
[2016-11-18] MEDS ORDERED: SODIUM CHLORIDE 0.9% 1000ML 1,000 ML IV SCH (08:45)
[2016-11-18] MEDS: CALCIUM 600MG + VIT D 400 IU TAB PO SCH (09:00)
[2016-11-18] MEDS ORDERED: ASPIRIN 81 MG ECTAB PO SCH (09:00)
[2016-11-18] MEDS ORDERED: PIPERACILL/TAZOBAC CONSULT ACTIVE PRN (09:00)
[2016-11-18] MEDS ORDERED: SODIUM CHLORIDE 0.9% 250ML 250 ML IV SCH (09:30)
--- NOTE | 2016-11-18 09:56 | Discharge Instructions ---
Discharge Instructions Date of Service Nov 18, 2016. Admission Reason for Admission: Acute Calculous Cholecystitis,Cad Of Artery Bypass Discharge Discharge Diagnosis / Problem: acute cholecystitis Discharge Goals Goal(s): Decrease discomfort, Improve function Activity Recommendations Activity Level: Up Ad Candice . Additional Information Patient informed of condition: Yes Advance Directives: Yes DNR: No [facility]: Other [facility] Communicable Disease: No Prognosis: Other (TRANSFER TO [facility] FOR [facility] CARE) Ramires Catheter: No Instructions / Follow-Up Instructions / Follow-Up [facility]UP [facility] Current Hospital Diet Patient's current hospital diet: Clear Liquid Diet, AHA Diet (Heart Healthy), Diabetes Type 2 Diet Discharge Diet Recommended Diet: N/A (NPO EXCEPT MEDS) Pending Studies Studies pending at discharge: no Physician Orders On Transfer Special Precautions: FALL AND ASPIRATION PRECAUTIONS IV Therapy: IV NS@50ML/HR IV ZOSYN IV FLAGYL Additional Orders: PLEASE CHECK MEDICATION RECONCILIATIONS FOR ACCURATE MEDICATION LIST Laboratory Results Hemoglobin A1c Test 11/18/16 06:11 Range/Units Estimated Average Glucose 128 mg/dl Hemoglobin A1c 6.1 H 4.5-5.6 % Medical Emergencies . Who to Call and When: Medical Emergencies: If at any time you feel your situation is an emergency, please call 911 immediately. . Non-Emergent Contact Non-Emergency issues call your: Primary Care Provider . . "Provider Documentation" section prepared by Davey Arceo. . Core Measure Problem Core Measures: None
[2016-11-18] MEDS: METRONIDAZOLE / NSS 500 MG in PREMIXED NSS 100 ML IV SCH ×3 (10:05→17:46)
[2016-11-18] MEDS: CARVEDILOL 6.25 MG TAB PO SCH (10:06)
--- NOTE | 2016-11-18 10:18 | Progress Note ---
Internal Med Progress Note Date of Service: Nov 18, 2016. Provider Documentation: SUBJECTIVE: PATIENT RESTING COMFORTABLY SAYS MILD RUQ PAIN ON PUSHING ON IT MILD TEMP SPIKE TODAY MORNING DENIES NAUSEA OR VOMITING NO CHEST PAIN OR SOB NO COUGH OBJECTIVE: Vital Signs-as noted below Exam: General-alert and oriented. Not in distress ENT-normal hearing Neck-no neck masses Lungs-cta b/l no wheezing or crackles Heart-s1 and s2 heard regular rhythm no murmurs Abdomen-soft bowel sounds present mild ruq tender no distension Extremities-no edema no erythema Neuro-alert and oriented moves extremities Lab data as noted below. ASSESSMENT & PLAN: 1. Acute cholecystitis with a hugely dilated gallbladder. on ct sacn and ultrasound was on iv Ceftin for possible procedure leukocytosis and mild elevation of bilirubin today mild temp spike changed abx to iv Zosyn and Flagyl started on gentle fluids seen by surgery and recommends tertiary care transfer as patient is deemed high risk for surgery by cardiology and may need surgery vs percutaneous drainage [place] surgery dept accepted patient in transfer. 2. 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 Patient was evaluated by cardiology at [facility] for pre op clearance Patient had extensive cardiac hx with cabg in 1995, two stents in 2005 and was in [facility] in 2015 for unstable angina and was found to have one of the grafts stenosed and s/p stent placement. Patient has exertional sob.Previous Echo in 2014 EF 40-45%, Had Holter in June 2016 showing supra ventricular ectopy. Echo done here showed EF 30-35%. Considering all the above issues cardiology deemed patient high risk for surgery. And recommended to continue aspirin and can hold Plavix for procedures.To continue coreg with hold parameters.Appreciate Cardiology help. 3. Hypertension. Blood pressure seems to be lower side of normal. BP meds with hold parameters. 4. Hyperlipidemia. on statin.Can hold stain until procedures. 5. Gastrointestinal prophylaxis with ranitidine. Transferring to [place]. Vital Signs: Date Time Temp Pulse Resp B/P (MAP) Pulse Ox O2 Delivery O2 Flow Rate FiO2 11/18/16 09:46 37.0 83 18 111/57 (75) 92 Room Air 11/18/16 07:30 37.8 72 16 88/48 (61) 89 Room Air 114/62 (79) 11/18/16 07:30 89 Room Air 11/17/16 23:15 Room Air 11/17/16 22:59 36.9 67 18 99/45 (63) 92 Room Air 11/17/16 16:00 Room Air 11/17/16 15:40 36.9 77 16 118/56 (76) 92 Room Air Lab Results: Results Past 24 Hours Test 11/17/16 12:09 11/17/16 17:21 11/17/16 20:39 11/18/16 05:57 Range/Units Bedside Glucose 102 88 113 75 70-90 mg/dl Test 11/18/16 06:00 11/18/16 06:11 11/18/16 09:17 Range/Units Urine Color DK YELLOW Urine Appearance CLEAR CLEAR Urine pH 5.0 4.5-7.5 Urine Specific [place] 1.032 1.000-1.030 Urine Protein 1+ NEG Urine Glucose (UA) NEG NEG Urine Ketones TRACE NEG Urine Occult Blood TRACE NEG Urine Nitrite POS NEG Urine Bilirubin NEG NEG Urine Urobilinogen NEG NEG Urine Leukocyte Esterase SMALL NEG Urine WBC (Auto) 10-30 0-5 /hpf Urine RBC (Auto) 0-4 0-4 /hpf Urine Hyaline Casts (Auto) 5-10 0-5 /lpf Urine Epithelial Cells (Auto) >30 0-5 /lpf Urine Bacteria (Auto) NEG NEG Urine Renal Epithelial Cells 0-5 /lpf White Blood Count 22.31 4.8-10.8 K/uL Red Blood Count 4.41 4.2-5.4 M/uL Hemoglobin 12.4 12.0-16.0 g/dL Hematocrit 37.3 37-47 % Mean Corpuscular Volume 84.6 80-100 fL Mean Corpuscular Hemoglobin 28.1 25-34 pg Mean Corpuscular Hemoglobin Concent 33.2 32-36 g/dl RDW Standard Deviation 48.6 36.4-46.3 fL RDW Coefficient of Variation 15.7 11.5-14.5 % Platelet Count 161 130-400 K/uL Mean Platelet Volume 9.7 7.4-10.4 fL Sodium Level 134 136-145 mmol/L Potassium Level 3.6 3.5-5.1 mmol/L Chloride Level 100 98-107 mmol/L Carbon Dioxide Level 30 21-32 mmol/L Anion Gap 4.0 3-11 mmol/L Blood Urea Nitrogen 14 7-18 mg/dl Creatinine 0.80 0.60-1.20 mg/dl Est Creatinine Clear Calc Drug Dose 40.7 ml/min Estimated GFR () 78.5 Estimated GFR (Non- 67.7 BUN/Creatinine Ratio 17.6 10-20 Random Glucose 82 70-99 mg/dl Estimated Average Glucose 128 mg/dl Hemoglobin A1c 6.1 4.5-5.6 % Calcium Level 8.5 8.5-10.1 mg/dl Magnesium Level 1.6 1.8-2.4 mg/dl Total Bilirubin 1.5 0.2-1 mg/dl Direct Bilirubin 0.3 0-0.2 mg/dl Aspartate Amino Transf (AST/SGOT) 19 15-37 U/L Alanine Aminotransferase (ALT/SGPT) 15 12-78 U/L Alkaline Phosphatase 51 45-117 U/L Total Protein 6.3 6.4-8.2 gm/dl Albumin 2.5 3.4-5.0 gm/dl Lactic Acid Level 1.0 0.4-2.0 mmol/L Microbiology Results 11/18/16 Urine Culture, Received Pending
--- NOTE | 2016-11-18 10:22 | Discharge Summary ---
Discharge Summary Date of Service Nov 18, 2016. Discharge Summary Admission Date: Nov 17, 2016 at 03:13 Discharge Date: Nov 18, 2016 Discharge Disposition: Acute care facility Principal Diagnosis: ACUTE CHOLECYSTIS- HIGH RISK FOR PROCEDURES Secondary Diagnoses/Problems: coronary disease with multiple MIs in the past and is status post CABG years ago, chronic anemia, diet-controlled diabetes, GERD, hyperlipidemia, hypertension Procedures: CXR: Cardiomegaly with no acute cardiopulmonary abnormality. CT ABD/PELVIS: 1. The gallbladder is distended and faint pericholecystic stranding is suggested. A large gallstone is seen in the region of the gallbladder neck and the findings are concerning for acute cholecystitis. Correlation with clinical findings will be required. If clinically warranted ultrasound could be considered for further assessment. 2. Cardiomegaly. 3. There is moderate diverticulosis of the left colon without CT evidence of acute diverticulitis. GALL BLADDER US: A 2.7 cm stone within the gallbladder neck with mild gallbladder wall thickening, trace pericholecystic fluid, and a positive sonographic Maynard's sign. This is highly suspicious for acute cholecystitis. ECHO: Sinus rhythm with premature atrial contractions was present during the echocardiogram examination. * There is a large sized apical, septal, anteroseptal, and inferior wall motion abnormality with hypokinesis to akinesis of the segments. * The inferoseptal and inferior feldman are thin and akinetic consistent with long standing scar. * Left ventricular systolic function is moderately reduced. * The LV Ejection Fraction = 30-35%. * The aortic valve is mildly calcified. * Aortic stenosis is absent. * Mild aortic regurgitation. * There is mild mitral regurgitation. * Doppler findings do not suggest pulmonary hypertension. Consultations: GENERAL SURGERY CARDIOLOGY Medication Reconciliation Continued Medications: Amlodipine (Norvasc) 5 Mg Tab 5 MG PO HS, TAB Ascorbic Acid (Vitamin C) 250 Mg Tab 250 MG PO DAILY Aspirin (Aspirin 81) 81 Mg Tab 81 MG PO DAILY Calcium/Vitamin D (Os-Shankar 500 Plus D) Tab 1 TAB PO BID, TAB Carvedilol (Coreg) 6.25 Mg Tab 6.25 MG PO BID, TAB Cholecalciferol (Vitamin D) 2,000 Unit Cap 2000 UNIT PO DAILY Cyanocobalamin (Vitamin B12) 1,000 Mcg Tab 1000 MCG PO DAILY Ipratropium-Albuterol (Combivent Respimat) 1 Aer Aer 1 PUFFS INH QID PRN for COUGH,WHEEZING, INH Lisinopril (Prinivil) 40 Mg Tab 40 MG PO QAM, TAB Nitroglycerin (Nitrostat) 0.4 Mg Tab 0.4 MG UT UD, BTL Ranitidine (Zantac) 150 Mg Tab 150 MG PO HS, TAB Discontinued Medications: Clopidogrel (Plavix) 75 Mg Tab 75 MG PO QAM, TAB Coenzyme Q10 (Ubidecarenone) (Coq-10) 100 Mg Cap 100 MG PO DAILY Methylsulfonylmethane (Msm) 1,000 Mg Cap 1000 MG PO DAILY Rosuvastatin Calcium (Crestor) 5 Mg Tab 5 MG PO HS, TAB Admission Information HPI (per Admitting provider): : She is an 86-year-old female with significant past medical history, including coronary disease with multiple MIs in the past and is status post CABG years ago, chronic anemia, diet-controlled diabetes, GERD, hyperlipidemia, hypertension. Apparently, after supper with a sandwich, she complained to have epigastric pain like a band across the upper abdomen. The pain was so severe that she came to the Emergency Room. She did not have any nausea, vomiting, any fever or chills associated with it. In the ER, she was afebrile, but the CAT scan of the abdomen and pelvis did show a huge stone in the neck of the gallbladder with hugely dilated gallbladder wall, suggestive of acute cholecystitis. Surgery was consulted and the patient was put on intravenous antibiotic for possible surgery in the morning. Denies to have any chest pain, palpitation, any shortness of breath, no fever, chills or rigors. No cough or phlegm. No problem with urine and/or bowel habit. No numbness or tingling in the extremities Physical Exam (per Admitting): GENERAL: On examination in the Emergency Room, she was not having any acute distress. Minimal pain in the epigastrium. VITAL SIGNS: Temperature 36.6, pulse was 74, blood pressure 97/38, but initially, it was 124/49, saturation 93% on room air. HEENT: Unremarkable. NECK: Supple. No JVD, no bruit. CHEST: Clear to auscultation bilaterally. HEART: S1, S2 regular, no murmur. ABDOMEN: Soft. Tender in the epigastrium and also in the right upper quadrant, persistent and positive. Bowel sounds present. EXTREMITIES: Trace edema bilaterally. MUSCULOSKELETAL SYSTEM: Examination did not show any acute arthritis. CENTRAL NERVOUS SYSTEM: She was alert, awake, oriented x3. No focal sensory and/or motor deficit appreciated. Hospital Course 1. Acute cholecystitis with a hugely dilated gallbladder. on ct sacn and ultrasound was on iv Ceftin for possible procedure leukocytosis and mild elevation of bilirubin today mild temp spike changed abx to iv Zosyn and Flagyl started on gentle fluids seen by surgery and recommends tertiary care transfer as patient is deemed high risk for surgery by cardiology and may need surgery vs percutaneous drainage [place] surgery dept accepted patient in transfer. 2. 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 Patient was evaluated by cardiology at [facility] for pre op clearance Patient had extensive cardiac hx with cabg in 1995, two stents in 2005 and was in [facility] in 2015 for unstable angina and was found to have one of the grafts stenosed and s/p stent placement. Patient has exertional sob.Previous Echo in 2014 EF 40-45%, Had Holter in June 2016 showing supra ventricular ectopy. Echo done here showed EF 30-35%. Considering all the above issues cardiology deemed patient high risk for surgery, And recommended to continue aspirin and can hold Plavix for procedures.To continue coreg with hold parameters.Appreciate Cardiology help. 3. Hypertension. Blood pressure seems to be lower side of normal. BP meds with hold parameters. 4. Hyperlipidemia. on statin.Can hold stain until procedures. 5. Gastrointestinal prophylaxis with ranitidine. Transferring to [place]. Total time spent on discharge = 40MINUTES This includes examination of the patient, discharge planning, medication reconciliation, and communication with other providers. Discharge Instructions Discharge Instructions Date of Service Nov 18, 2016. Admission Reason for Admission: Acute Calculous Cholecystitis,Cad Of Artery Bypass Discharge Discharge Diagnosis / Problem: acute cholecystitis Discharge Goals Goal(s): Decrease discomfort, Improve function Activity Recommendations Activity Level: Up Ad Candice . Additional Information Patient informed of condition: Yes Advance Directives: Yes DNR: No Level of Care: Other ([facility]) Communicable Disease: No Prognosis: Other (TRANSFER TO [facility]) Ramires Catheter: No Instructions / Follow-Up Instructions / Follow-Up FOLLOWUP PER [facility] RECOMMENDATIONS Current Hospital Diet Patient's current hospital diet: Clear Liquid Diet, AHA Diet (Heart Healthy), Diabetes Type 2 Diet Discharge Diet Recommended Diet: N/A (NPO EXCEPT MEDS) Pending Studies Studies pending at discharge: no Physician Orders On Transfer Special Precautions: FALL AND ASPIRATION PRECAUTIONS IV Therapy: IV NS@50ML/HR IV ZOSYN IV FLAGYL Additional Orders: PLEASE CHECK MEDICATION RECONCILIATIONS FOR ACCURATE MEDICATION LIST Laboratory Results Hemoglobin A1c Test 11/18/16 06:11 Range/Units Estimated Average Glucose 128 mg/dl Hemoglobin A1c 6.1 H 4.5-5.6 % Medical Emergencies . Who to Call and When: Medical Emergencies: If at any time you feel your situation is an emergency, please call 911 immediately. . Non-Emergent Contact Non-Emergency issues call your: Primary Care Provider . . "Provider Documentation" section prepared by Davey Arceo. . Core Measure Problem Core Measures: None
[2016-11-18] MEDS: HEPARIN SOD 5000 UNIT/0.5 ML CARP SQ SCH (10:30)
[2016-11-18] MEDS: PIPERACILL/TAZOBAC IV 3.375 GM in DEXTROSE 5% 100ML 100 ML IV ONE ×2 (11:51→12:35)
[2016-11-18] MEDS ORDERED: PIPERACILL/TAZOBAC IV 3.375 GM in DEXTROSE 5% 100ML 100 ML IV ONE (12:30)
[2016-11-18] MEDS ORDERED: PIPERACILL/TAZOBAC IV 3.375 GM in DEXTROSE 5% 100ML IV SCH (14:00)
[2016-11-18] MEDS ORDERED: LORAZEPAM 1 MG TAB PO ONE (16:15)
== END 2016-11-18 21:10 | disposition short-term general hospital (02) | DRG 446 ==
LOC: EDBD 00:16 → C.EDA 00:18 → C.MSW 03:13 → ENRESERV 03:50 → CANRESERV 03:50 → ENRESERV 03:54
PROVIDERS: ADMIT Internal Medicine; ATTEND Internal Medicine
DX: K81.0 Acute cholecystitis (principal); K21.9 Gastro-esophageal reflux disease without esophagitis; I25.10 Atherosclerotic heart disease of native coronary artery without angina pectoris; E11.9 Type 2 diabetes mellitus without complications; I10 Essential (primary) hypertension; E78.5 Hyperlipidemia, unspecified; I25.2 Old myocardial infarction; D64.9 Anemia, unspecified; I25.5 Ischemic cardiomyopathy; Z79.02 Long term (current) use of antithrombotics/antiplatelets; Z79.82 Long term (current) use of aspirin; Z79.899 Other long term (current) drug therapy; Z86.73 Personal history of transient ischemic attack (TIA), and cerebral infarction without residual deficits; Z87.891 Personal history of nicotine dependence; Z95.1 Presence of aortocoronary bypass graft

== ENCOUNTER 2017-06-29 03:14 | Emergency (ER) | payer OTHER ==
[~2017-06-29] VITALS: Ht 162.6 cm; Wt 57.2 kg
[~2017-06-29 03:14] MED LIST: AMLO-110 PO; ASCO250T4 PO; ASPI-435 PO; CALC500C70 PO; CARV6.252 PO; CHOL200010 PO; CYAN100020 PO; IPRA1AER2 INH; LISI40TA PO; NTRGSL/4 UT; RANI150T85 PO
[2017-06-29 03:31] VITALS: TEMP 36.6; Ht 162.6 cm; Wt 57.2 kg
[2017-06-29 03:40] LABS: BASO % 0.2 %; BASO ABS # 0.02 K/uL (0-0.2); EOS % 2.4 %; EOS ABS # 0.21 K/uL (0-0.5); HEMATOCRIT 41.9 % (37-47); IG# 0.02 K/uL (0.00-0.02); LYMPH ABS # 1.84 K/uL (1.2-3.4); MEAN CELL VOLUME 86.2 fL (80-100); MEAN CORPUSCULAR HEMOGLOBIN 28.8 pg (25-34); MEAN CORPUSCULAR HGB CONC 33.4 g/dl (32-36); MEAN PLATELET VOLUME 10.7 fL (7.4-10.4); MONO % 8.6 %; MONO ABS # 0.75 K/uL (0.11-0.59); NEUT % 67.6 %; NEUT ABS # 5.91 K/uL (1.4-6.5); PLATELET COUNT 193 K/uL (130-400); RED CELL DISTRIBUTION WIDTH CV 14.9 % (11.5-14.5); RED CELL DISTRIBUTION WIDTH SD 47.4 fL (36.4-46.3); WHITE BLOOD COUNT 8.75 K/uL (4.8-10.8)
[2017-06-29 03:49] LABS: ALBUMIN 3.4 gm/dl (3.4-5.0); ALT/SGPT 23 U/L (12-78); AST/SGOT 20 U/L (15-37); BLOOD UREA NITROGEN 15 mg/dl (7-18); CALCIUM 9.2 mg/dl (8.5-10.1); CARBON DIOXIDE 30 mmol/L (21-32); CREATININE 0.65 mg/dl (0.60-1.20); GLUCOSE 135 mg/dl (70-99); POTASSIUM 4.2 mmol/L (3.5-5.1); SODIUM 136 mmol/L (136-145)
[2017-06-29 03:53] LABS: ALKALINE PHOSPHATASE 68 U/L (45-117); TOTAL PROTEIN 7.7 gm/dl (6.4-8.2)
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
[2017-06-29] MEDS ORDERED: SERT25TA PO (04:10)
[2017-06-29] MEDS ORDERED: LISI20TA3 PO (04:10)
[2017-06-29] MEDS ORDERED: AMLO2.5T PO (04:12)
[2017-06-29] MEDS ORDERED: ROSU5TAB PO (04:12)
[2017-06-29] MEDS ORDERED: METH-736 PO (04:13)
--- NOTE | 2017-06-29 06:39 | DIAGNOSTIC IMAGING REPORT ---
CHEST ONE VIEW PORTABLE CLINICAL HISTORY: eval for CP dyspnea COMPARISON STUDY: July 18, 2016 FINDINGS: Prior median sternotomy. Mild cardiomegaly. Diaphragms are smooth. Lungs are considered clear. IMPRESSION: Mild stable cardiomegaly. Otherwise negative study. The above report was generated using voice recognition software. It may contain grammatical, syntax or spelling errors. Electronically signed by: Jonathan Amaya M.D. 06/29/2017 6:38 AM Dictated Date/Time: 06/29/2017 6:37 AM
[2017-06-29 08:17] VITALS: BP 127/50; PULSE 62; O2SAT 97
== END 2017-06-29 08:18 | disposition home or self-care (01) ==
LOC: EDBD 03:14 → C.EDB 03:15
DX: R44.1 Visual hallucinations (principal); R07.89 Other chest pain; K45.8 Other specified abdominal hernia without obstruction or gangrene; I10 Essential (primary) hypertension; E11.9 Type 2 diabetes mellitus without complications; K21.9 Gastro-esophageal reflux disease without esophagitis; E78.5 Hyperlipidemia, unspecified; I25.810 Atherosclerosis of coronary artery bypass graft(s) without angina pectoris; I05.9 Rheumatic mitral valve disease, unspecified; E55.9 Vitamin D deficiency, unspecified; Z79.82 Long term (current) use of aspirin; M19.90 Unspecified osteoarthritis, unspecified site; Z87.891 Personal history of nicotine dependence; Z86.73 Personal history of transient ischemic attack (TIA), and cerebral infarction without residual deficits; Z88.8 Allergy status to other drugs, medicaments and biological substances; Z88.1 Allergy status to other antibiotic agents; Z91.011 Allergy to milk products; Z88.6 Allergy status to analgesic agent